=== PATIENT | female | born 1995 | race Caucasian/White ===

== ENCOUNTER 2021-01-12 07:47 | Emergency (ER) | payer SELFPAY ==
[2021-01-12] MEDS ORDERED: Sodium Chloride 0.9% 1,000 ML IV ONE (08:06)
--- NOTE | 2021-01-12 08:22 | CR ---
INDICATION: Chest pain TECHNIQUE: Single view chest. Comparison no comparison FINDINGS: Normal cardiac mediastinal silhouette. Infiltrate right mid lung. Left lung is clear. No effusion. No pneumothorax. Impression: Right-sided infiltrate. Dictated by Carol Pate MD @ Jan 12 2021 8:20AM Signed by Dr. Carol Pate @ Jan 12 2021 8:21AM
[2021-01-12 09:20] LABS: CORONAVIRUS COVID-19 NAA POSITIVE (NEGATIVE); INFLUENZA A NAA NEGATIVE (NEGATIVE); INFLUENZA B NAA NEGATIVE (NEGATIVE)
[2021-01-12] MEDS ORDERED: Azithromycin 250 MG Tab PO STA (09:31)
--- NOTE | 2021-01-12 09:38 | EDM.PDOC ---
ED HPI GENERAL MEDICAL PROBLEM - General Chief Complaint: General Stated Complaint: CHEST PAIN, SICK Time Seen by Provider: 01/12/21 07:48 - History of Present Illness INITIAL COMMENTS - FREE TEXT/NARRATIVE: CHIEF COMPLAINT(S): Shortness of breath HISTORY OF PRESENT ILLNESS: This is a 25-year-old woman with a past medical history of recurrent pneumonia who comes to the emergency department with a chief complaint of shortness of breath. The patient states over the last 3 days she has not been feeling well. She states that she has been experiencing body aches, increased fatigue and shortness of breath. She states that she does have a cough which is nonproductive. She denies any fevers or chills but states that she did have some mild diarrhea. She states the Pepto-Bismol did help. She states that she has had pneumonia in the past and she did try at home to use [id number] cough medicines, flu medicines, warm showers and Vicks vapor rub which did not help. She states that she does not know any known Covid contacts but she does have 2 kids at home. She states that she does have some associated chest pain especially when she coughs located on her right side along her middle ribs. She describes this pain as 8 out of 10 and intermittent. She states that when she takes a hot shower it does help. She denies any other associated symptoms such as diaphoresis but did have one episode of vomiting yesterday which was nonbloody and nonbilious REVIEW OF SYSTEMS: Constitutional: Denies fever, chills. Eyes: Denies eye pain Ears, Nose, Mouth, & Throat: Denies earache Cardiovascular: Positive for right-sided chest pain Respiratory: Positive for shortness of breath and nonproductive cough Gastrointestinal: Positive for diarrhea and one episode of vomiting. Denies nausea, hematochezia, hematemesis, bilious emesis Genitourinary: Denies hematuria, dysuria Skin:Denies a rash MSK: Positive for joint pain and body aches Neurological: Denies blurred vision Psychiatric: Denies depression PAST MEDICAL HISTORY: As per history of present illness and as reviewed below otherwise noncontributory. SURGICAL HISTORY: As per history of present illness and as reviewed below otherwise noncontributory. SOCIAL HISTORY: As per history of present illness and as reviewed below otherwise noncontributory. FAMILY HISTORY: As per history of present illness and as reviewed below otherwise noncontributory. EXAMINATION OF ORGAN SYSTEMS/BODY AREAS: Constitutional: Blood pressure was 143/72, heart rate 108, respiratory rate 17 with an oxygen saturation of 98% on room air. Temperature 37.3 orally General: Young woman who does not appear to be in acute distress. Psychiatric: Appropriate mood and affect. Eyes: No scleral icterus or conjunctival erythema ENMT: Moist mucous membranes. No pharyngeal erythema Cardiovascular: Regular, rate, and rhythm. No gallops, murmurs, or rubs. Bilateral upper extremity pulses symmetric and intact. No peripheral edema. No JVD. Respiratory: Lungs clear to auscultation bilaterally. No wheezes, rales, or rhonchi. Gastrointestinal: Soft, non-tender, non-distended. Normoactive bowel sounds Genitourinary: No suprapubic tenderness Musculoskeletal: Normal range of motion. Skin: No lesions or abrasions. Neurological: Alert, GCS 15 MEDICAL DECISION MAKING AND COURSE IN THE ED WITH INTERPRETATION/REVIEW OF DIAGNOSTIC STUDIES: This is a 25-year-old woman with a past medical history of recurrent pneumonia who comes to the emergency department with 3 days of worsening shortness of breath, nonproductive cough and right-sided chest wall pain who overall appears well who is mildly hypertensive and slightly tachycardic. At this time the patient is overall young and healthy. Will obtain a chest x-ray and obtain Covid and influenza swabs. We did obtain a wv reening EKG which did not reveal any acute signs of ischemia. We will provide the patient with 1 L of normal saline bolus given the tachycardic. Time: 0746 Twelve-lead EKG interpreted by myself. Normal sinus rhythm at a rate of 93beats per minute. Normal axis. NM interval is 144ms. QRS duration is 71ms. ST segments are normal without elevations or depressions. No T wave inversions no Q waves present. Hypertrophy not noted. No prior EKGs in our system. Interpretation: Normal sinus rhythm Laboratory: Covid is positive. Influenza a and B are negative. The radiological images were viewed by myself along with reading the report from the radiologist. Chest x-ray reveals a right-sided infiltrate After imaging I did reevaluate the patient, her oxygen saturation continued to remain normal and her tachycardia did improve. At this time I did discuss that she does have Covid pneumonia with an overlying lobar pneumonia. I did discuss with her I had like to start her on azithromycin for the lobar pneumonia. I did discuss with her Covid precautions and return precautions. She was amenable to discharge at this time and had no further questions DISPOSITION: The patient was discharged home in stable condition. The patient will follow up with primary care physician within 2 to 3 days CONDITION: Fair PROCEDURES: None FINAL IMPRESSION(S)/DIAGNOSES: 1. Acute right middle lobe lobar pneumonia, suspect community-acquired pneumonia 2. Acute COVID-19 pneumonia Irwin Mancera M.D. 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: Psychiatric History: Reports: Anxiety, Depression - Past Surgical History HEENT Surgical History: Reports: Adenoidectomy, Tonsillectomy GI Surgical History: Reports: Appendectomy Social & Family History - Tobacco Use Tobacco Use Status *Q: Never Tobacco User - Recreational Drug Use Recreational Drug Use: No ED ROS GENERAL - Review of Systems Review Of Systems: See Below ED EXAM, GENERAL - Physical Exam Exam: See Below Course - Vital Signs Last Recorded V/S: Last Vital Signs Temp 37.3 C 01/12/21 08:40 Pulse 94 01/12/21 10:05 Resp 17 01/12/21 10:05 BP 129/65 01/12/21 10:05 Pulse Ox 98 01/12/21 10:05 - Orders/Labs/Meds Labs: Laboratory Tests 01/12/21 Range/Units 07:49 Influenza Type A RNA NEGATIVE (NEGATIVE) Influenza Type B RNA NEGATIVE (NEGATIVE) SARS-CoV-2 RNA ([place]) POSITIVE H (NEGATIVE) Meds: Medications Discontinued Medications Generic Name Dose Route Start Last Admin Trade Name Freq PRN Reason Stop Dose Admin Azithromycin 500 mg 01/12/21 09:31 01/12/21 10:00 Zithromax PO 01/12/21 09:32 500 mg ONETIME STA Administration Sodium Chloride 1,000 mls @ 999 mls/hr 01/12/21 08:06 01/12/21 08:20 Normal Saline IV 01/12/21 09:06 999 mls/hr .Bolus ONE Administration Departure - Departure Time of Disposition: 09:35 Disposition: Home, Self-Care 01 Condition: Fair Clinical Impression: Pneumonia, COVID-19 - Discharge Information *PRESCRIPTION DRUG MONITORING PROGRAM REVIEWED*: No *COPY OF PRESCRIPTION DRUG MONITORING REPORT IN PATIENT LAN: No Prescriptions: Azithromycin [Zithromax] 250 mg PO DAILY #4 tab Instructions: COVID-19 Frequently Asked Questions, What You Should Know About COVID-19 to Protect Yourself and Others - CDC, 10 Things You Can Do to Manage Your COVID-19 Symptoms at Home - CDC, COVID-19: Quarantine vs. Isolation - CDC, Community-Acquired Pneumonia, Adult, [id number] Referrals: PCP,Unknown [Ordering Only Provider] - Forms: ED Department Discharge Additional Instructions: You were evaluated today on an emergent basis. At this time you are diagnosed with a community-acquired pneumonia in addition to COVID-19 infection. Given that you have a community-acquired pneumonia on chest x-ray we will start you on azithromycin. You were given your first dose today. Starting tomorrow please take 250 mg of azithromycin daily for the next 4 days. In addition please use Tylenol and Motrin for fever and pain relief. Please isolate for the next 10 days. Is important to wash your hands and use hand junior manufacturing engineer and wear your mask. If you have any new or worsening symptoms such as worsening shortness of breath, cough, fevers or pulse oximetry less than 92% please return to the emergency department. Please follow-up with primary care physician. Please use: Tylenol 500-1000mg every 6 hours (DO NOT TAKE MORE THAN 4000mg in 1 day) Ibuprofen 400mg every 6 hours (Take with food as it can cause ulcers, GI upset) Example schedule: 8:00 AM (Tylenol 500-1000mg) 11:00 AM (Ibuprofen 400mg) 2:00 PM (Tylenol 500-1000mg) 5:00 PM (Ibuprofen 400mg) [facility] [address] [place] [id number] [place] [address] The patient is informed of any results of their evaluation and diagnostic workup and all questions are answered. They are given discharge instructions and return precautions. The patient is stable for discharge. The patient states they understand and agree with the plan and that they will return if their symptoms get worse or if they have any new concerns. The following information is given to patients seen in the emergency department who are being discharged to home. This information is to outline your options for follow-up care. We provide all patients seen in our emergency department with a follow-up referral. The need for follow-up, as well as the timing and circumstances, are variable depending upon the specifics of your emergency department visit. If you don't have a primary care physician on staff, we will provide you with a referral. We always advise you to contact your personal physician following an emergency department visit to inform them of the circumstance of the visit and for follow-up with them and/or the need for any referrals to a consulting specialist. The emergency department will also refer you to a specialist when appropriate. This referral assures that you have the opportunity for follow-up care with a specialist. All of these measure are taken in an effort to provide you with optimal care, which includes your follow-up. Under all circumstances we always encourage you to contact your private physician who remains a resource for coordinating your care. When calling for follow-up care, please make the office aware that this follow-up is from your recent emergency room visit. If for any reason you are refused follow-up, please contact the [facility] Emergency Department at and asked to speak to the emergency department charge nurse. Sepsis Event Note (ED) - Evaluation Sepsis Screening Result: Possible Sepsis Risk - Focused Exam Vital Signs: Vital Signs Temp Temp Pulse Resp BP Pulse Ox 01/12/21 10:05 94 17 129/65 98 01/12/21 08:40 37.3 C 93 99 01/12/21 07:55 35.9 C L 108 H 17 143/72 H 98
== END 2021-01-12 10:05 | disposition home or self-care (01) ==
LOC: MW.ED 07:47
DX: U07.1 COVID-19 (principal); J12.82 Pneumonia due to coronavirus disease 2019; Z88.0 Allergy status to penicillin
CPT/HCPCS: 0240U; 71045; 93005; 99285; A9270; J7030; 93010; 99284

== ENCOUNTER 2021-04-20 19:55 | Emergency (ER) | payer BC, OTHER ==
[2021-04-20] MEDS ORDERED: Famotidine 20 MG/2 ML SDV IVPUSH ONE (20:46)
[2021-04-20] MEDS ORDERED: Sodium Chloride 0.9% 2.5 ML Syringe FLUSH PRN (20:46)
[2021-04-20] MEDS ORDERED: Sodium Chloride 0.9% 1,000 ML IV ONE (20:46)
[2021-04-20] MEDS ORDERED: Alum Hydrox/Mag Hydrox/Simeth 15 ML, Lidocaine 2% 5 ML PO ONE ×2 (20:46)
[2021-04-20] MEDS ORDERED: Sodium Chloride 0.9% 10 ML Syringe FLUSH PRN (20:46)
--- NOTE | 2021-04-20 20:53 | EDM.PDOC ---
ED HPI GENERAL MEDICAL PROBLEM - General Chief Complaint: Abdominal Pain Stated Complaint: ABDOMINAL PAIN, NAUSEA Time Seen by Provider: 04/20/21 20:28 Source of Information: Reports: Patient History Limitations: Reports: No Limitations - History of Present Illness INITIAL COMMENTS - FREE TEXT/NARRATIVE: 25-year-old female presents for multiple complaints. Patient notes over the last 2 weeks she has had diffuse abdominal cramping pains associated with nausea but no vomiting. She feels bloated. She also notes that her period is 2 weeks late. She states that her abdominal pain is diffuse and not localized. She notes that it is worse after eating. 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 History: Reports: None Psychiatric History: Reports: Anxiety, Depression Hematologic History: Reports: None Oncologic (Cancer) History: Reports: None Dermatologic History: Reports: None - Infectious Disease History Infectious Disease History: Reports: None - Past Surgical History HEENT Surgical History: Reports: Adenoidectomy, Tonsillectomy GI Surgical History: Reports: Appendectomy Social & Family History - Family History Family Medical History: No Pertinent Family History - Tobacco Use Tobacco Use Status *Q: Never Tobacco User - Caffeine Use Caffeine Use: Reports: Coffee - Recreational Drug Use Recreational Drug Use: No ED ROS GENERAL - Review of Systems Review Of Systems: Comprehensive ROS is negative, except as noted in HPI. ED EXAM, GENERAL - Physical Exam Exam: See Below Exam Limited By: No Limitations General Appearance: Alert, WD/WN, No Apparent Distress Throat/Mouth: Normal Voice, No Airway Compromise Head: Atraumatic, Normocephalic Neck: Normal Inspection Respiratory/Chest: No Respiratory Distress, Lungs Clear, Normal Breath Sounds, No Accessory Muscle Use Cardiovascular: Normal Peripheral Pulses, Regular Rate, Rhythm GI/Abdominal: Soft, Non-Tender Extremities: Normal Inspection Neurological: Alert Psychiatric: Normal Affect, Normal Mood Course - Vital Signs Last Recorded V/S: Last Vital Signs Temp 97.6 F 04/20/21 20:28 Pulse 89 04/20/21 20:28 Resp 17 04/20/21 20:28 BP 156/87 H 04/20/21 20:28 Pulse Ox 98 04/20/21 20:28 - Orders/Labs/Meds Orders: Active Orders 24 hr Category Date Time Status Sodium Chloride 0.9% [Saline Flush] Med 04/20/21 20:46 Active 10 ml FLUSH ASDIRECTED PRN Sodium Chloride 0.9% [Saline Flush] Med 04/20/21 20:46 Active 2.5 ml FLUSH ASDIRECTED PRN Saline Lock Insert [OM.PC] Stat Oth 04/20/21 20:46 Ordered Medication Orders Sodium Chloride (Sodium Chloride 0.9% 10 Ml Syringe) 10 ml FLUSH ASDIRECTED PRN PRN Reason: Keep Vein Open Last Admin: 04/20/21 21:02 Dose: 10 ml Documented by: PRAVIN Sodium Chloride (Sodium Chloride 0.9% 2.5 Ml Syringe) 2.5 ml FLUSH ASDIRECTED PRN PRN Reason: Keep Vein Open Last Admin: 04/20/21 21:02 Dose: 2.5 ml Documented by: PRAVIN Labs: Laboratory Tests 04/20/21 04/20/21 04/20/21 Range/Units 21:00 21:00 21:00 WBC 8.16 (4.0-11.0) K/uL RBC 4.78 (4.30-5.90) M/uL Hgb 13.4 (12.0-16.0) g/dL Hct 40.8 (36.0-46.0) % MCV 85.4 (80.0-98.0) fL MCH 28.0 (27.0-32.0) pg MCHC 32.8 (31.0-37.0) g/dL RDW Std Deviation 44.4 (28.0-62.0) fl RDW Coeff of Razia 14 (11.0-15.0) % Plt Count 331 (150-400) K/uL MPV 9.60 (7.40-12.00) fL Neut % (Auto) 54.8 (48.0-80.0) % Lymph % (Auto) 36.8 (16.0-40.0) % [place] % (Auto) 5.3 (0.0-15.0) % Eos % (Auto) 2.9 (0.0-7.0) % Baso % (Auto) 0.2 (0.0-1.5) % Neut # (Auto) 4.5 (1.4-5.7) K/uL Lymph # (Auto) 3.0 H (0.6-2.4) K/uL [place] # (Auto) 0.4 (0.0-0.8) K/uL Eos # (Auto) 0.2 (0.0-0.7) K/uL Baso # (Auto) 0.0 (0.0-0.1) K/uL Nucleated RBC % 0.0 /100WBC Nucleated RBCs # 0 K/uL Sodium 141 (136-145) mmol/L Potassium 3.9 (3.5-5.1) mmol/L Chloride 102 (98-107) mmol/L Carbon Dioxide 25.6 (21.0-32.0) mmol/L BUN 11 (7.0-18.0) mg/dL Creatinine 0.8 (0.6-1.0) mg/dL Est Cr Clr Drug Dosing 95.89 mL/min Estimated GFR (MDRD) > 60.0 ml/min Glucose 115 H (74-106) mg/dL Calcium 8.7 (8.5-10.1) mg/dL Magnesium 2.0 (1.8-2.4) mg/dL Total Bilirubin 0.2 (0.2-1.0) mg/dL AST 24 (15-37) IU/L ALT 31 (14-63) IU/L Alkaline Phosphatase 74 (46-116) U/L Total Protein 8.0 (6.4-8.2) g/dL Albumin 3.8 (3.4-5.0) g/dL Globulin 4.2 H (2.6-4.0) g/dL Albumin/Globulin Ratio 0.9 (0.9-1.6) Lipase 195 (73-393) U/L HCG, Quant < 1.0 mIU/mL Urine Color YELLOW Urine Appearance SLT CLOUDY Urine pH 6.0 (5.0-8.0) Ur Specific [place] 1.025 (1.001-1.035) Urine Protein NEGATIVE (NEGATIVE) mg/dL Urine Glucose (UA) NEGATIVE (NEGATIVE) mg/dL Urine Ketones NEGATIVE (NEGATIVE) mg/dL Urine Occult Blood NEGATIVE (NEGATIVE) Urine Nitrite NEGATIVE (NEGATIVE) Urine Bilirubin NEGATIVE (NEGATIVE) Urine Urobilinogen 0.2 (<2.0) EU/dL Ur Leukocyte Esterase SMALL H (NEGATIVE) Urine RBC 0-2 (0-2/HPF) Urine WBC 4-8 (0-5/HPF) Ur Epithelial Cells MODERATE (NONE-FEW) Urine Bacteria 1+ H (NEGATIVE) Meds: Medications Generic Name Dose Route Start Last Admin Trade Name Freq PRN Reason Stop Dose Admin Sodium Chloride 10 ml 04/20/21 20:46 04/20/21 21:02 Sodium Chloride 0.9% 10 Ml Syringe FLUSH 10 ml ASDIRECTED PRN Administration Keep Vein Open Sodium Chloride 2.5 ml 04/20/21 20:46 04/20/21 21:02 Sodium Chloride 0.9% 2.5 Ml Syringe FLUSH 2.5 ml ASDIRECTED PRN Administration Keep Vein Open Discontinued Medications Generic Name Dose Route Start Last Admin Trade Name Freq PRN Reason Stop Dose Admin Al Hydroxide/Mg Hydroxide 15 0 ml 04/20/21 20:46 04/20/21 21:02 ml/ Lidocaine HCl 5 ml PO 04/20/21 20:47 1 each ONETIME ONE Administration Famotidine 20 mg 04/20/21 20:46 04/20/21 21:02 Famotidine 20 Mg/2 Ml Sdv IVPUSH 04/20/21 20:47 20 mg ONETIME ONE Administration Sodium Chloride 1,000 mls @ 999 mls/hr 04/20/21 20:46 04/20/21 20:59 Normal Saline IV 04/20/21 21:46 999 mls/hr .Bolus ONE Administration - Re-Assessments/Exams Free Text/Narrative Re-Assessment/Exam: 04/20/21 20:52 We will get labs including quantitative beta-hCG. Will give symptomatic treatment medications. Low suspicion of clinically significant intra-abdominal process so will defer CT imaging at this time. 04/20/21 22:15 Labs are unremarkable. Patient is feeling better. Will discharge With symptomatic medications and with PMD follow-up. Return precautions discussed at length. Departure - Departure Time of Disposition: 22:15 Disposition: Home, Self-Care Condition: Good Clinical Impression: Abdominal pain Qualifiers: Abdominal location: generalized Qualified Code(s): R10.84 - Generalized abdominal pain - Discharge Information Prescriptions: Famotidine [Pepcid] 20 mg PO BEDTIME 14 Days #14 tab Instructions: Abdominal Pain, Adult, [id number] Referrals: PCP,None [Primary Care Provider] - Forms: ED Department Discharge Additional Instructions: You were emergency department work-up was unremarkable. Your labs all looked great and your test was negative. I prescribed a medication called Pepcid which can help with some of the stomach issues that you have been having. If you are still experiencing symptoms then I would follow-up with your primary care physician for further work-up. If you develop acutely worsening pain, vomiting to the point that you cannot keep anything down, or any new or concerning symptoms you are encouraged to come back to the emergency department. The following information is given to patients seen in the emergency department who are being discharged to home. This information is to outline your options for follow-up care. We provide all patients seen in our emergency department with a follow-up referral. The need for follow-up, as well as the timing and circumstances, are variable depending upon the specifics of your emergency department visit. If you don't have a primary care physician on staff, we will provide you with a referral. We always advise you to contact your personal physician following an emergency department visit to inform them of the circumstance of the visit and for follow-up with them and/or the need for any referrals to a consulting specialist. The emergency department will also refer you to a specialist when appropriate. This referral assures that you have the opportunity for follow-up care with a specialist. All of these measure are taken in an effort to provide you with optimal care, which includes your follow-up. Under all circumstances we always encourage you to contact your private physician who remains a resource for coordinating your care. When calling for follow-up care, please make the office aware that this follow-up is from your recent emergency room visit. If for any reason you are refused follow-up, please contact the [facility] Emergency Department at and asked to speak to the emergency department charge nurse. Please follow up with your primary care physician. If you do not have a primary care physician, see below: [facility] [address] [place], [place] [id number] [facility] [address] [place] [address] [facility] [address] [place] [address] Sepsis Event Note (ED) - Evaluation Sepsis Screening Result: No Definite Risk - Focused Exam Vital Signs: Vital Signs Temp Pulse Resp BP Pulse Ox 04/20/21 20:28 97.6 F 89 17 156/87 H 98 - My Orders Last 24 Hours: My Active Orders 04/20/21 20:46 Sodium Chloride 0.9% [Saline Flush] 10 ml FLUSH ASDIRECTED PRN Sodium Chloride 0.9% [Saline Flush] 2.5 ml FLUSH ASDIRECTED PRN Saline Lock Insert [OM.PC] Stat - Assessment/Plan Last 24 Hours: My Active Orders 04/20/21 20:46 Sodium Chloride 0.9% [Saline Flush] 10 ml FLUSH ASDIRECTED PRN Sodium Chloride 0.9% [Saline Flush] 2.5 ml FLUSH ASDIRECTED PRN Saline Lock Insert [OM.PC] Stat
[2021-04-20 22:10] LABS: BLOOD UREA NITROGEN,BUN 11 mg/dL (7.0-18.0); CARBON DIOXIDE,CO2 25.6 mmol/L (21.0-32.0); CHLORIDE,CL 102 mmol/L (98-107); GLUCOSE RANDOM 115 mg/dL (74-106); LIPASE 195 U/L (73-393); POTASSIUM,K 3.9 mmol/L (3.5-5.1); SODIUM,NA 141 mmol/L (136-145)
== END 2021-04-20 22:32 | disposition home or self-care (01) ==
LOC: MW.ED 19:55
DX: R10.84 Generalized abdominal pain (principal); Z88.0 Allergy status to penicillin
CPT/HCPCS: 36415; 80053; 81001; 83690; 83735; 84702; 85025; 96374; 99284; A9270; J3490; J7030; 99283